=== PATIENT | male | born 1990 | race Caucasian/White ===

== ENCOUNTER 2017-05-01 21:08 | Emergency (ER) | payer OTHER ==
[~2017-05-01] VITALS: Ht 172.7 cm; Wt 114.8 kg
[2017-05-01 21:37] VITALS: BP 149/47
== END 2017-05-01 21:37 | disposition home or self-care (01) ==
LOC: ED 21:08
DX: K12.2 Cellulitis and abscess of mouth (principal); R03.0 Elevated blood-pressure reading, without diagnosis of hypertension

== ENCOUNTER 2018-10-08 19:18 | Emergency (ER) | payer OTHER ==
[~2018-10-08] VITALS: Ht 175.3 cm; Wt 108.0 kg
[2018-10-08 20:06] VITALS: Ht 175.3 cm; Wt 108.0 kg
[2018-10-08 22:24] LABS: PLATELET COUNT 173 x10^3mcL (130-400); RED CELL DISTRIBUTION WIDTH 13.8 % (11.5-14.5)
[2018-10-08 22:31] LABS: CALCIUM 8.9 mg/dL (8.5-10.1); CARBON DIOXIDE 29.4 mmol/L (21-32); CHLORIDE SERUM 102 mmol/L (98-107); CREATININE SERUM 0.7 mg/dL (0.7-1.3); GFR1 > 60 mL/min; GLUCOSE SERUM 119 mg/dL (74-106); POTASSIUM SERUM 3.7 mmol/L (3.5-5.1); SODIUM SERUM 141 mmol/L (136-145)
[2018-10-08 22:41] LABS: BASOPHIL % 0 % (0-2)
[2018-10-08 22:44] LABS: ALBUMIN 3.8 g/dL (3.4-5.0); ALKALINE PHOSPHATASE 62 U/L (46-116); ALT/SGPT 174 U/L (16-63); AST/SGOT 147 U/L (15-37); BILIRUBIN TOTAL 1.03 mg/dL (0.20-1.00)
[2018-10-08 22:47] LABS: TOTAL PROTEIN, SERUM 8.6 g/dL (6.4-8.2)
[2018-10-08 23:14] LABS: UA SPECIFIC GRAVITY 1.025 (1.005-1.035); microscopic required? YES; urine erythrocyte NEGATIVE (NEGATIVE)
[2018-10-08 23:23] LABS: AMPHETAMINE QUAL UR NONE DETECTED (See below)
[2018-10-09 00:20] VITALS: BP 120/82
== END 2018-10-09 00:21 | disposition home or self-care (01) ==
LOC: ED 19:18
PROVIDERS: Emergency Medicine
DX: R20.2 Paresthesia of skin (principal); B34.9 Viral infection, unspecified; F84.0 Autistic disorder
CPT/HCPCS: 36415; G0480; J7030